=== PATIENT | male | born 1995 ===

== ENCOUNTER 2017-01-14 22:47 | Emergency (ER) | payer OTHER ==
[2017-01-14 23:17] VITALS: BP 139/69; PULSE 66; RESP 15; TEMP 99.5; O2SAT 99
--- NOTE | 2017-01-14 23:44 | ED PDOC ---
HPI: Headache Time Seen by Provider: 01/14/17 23:21 Chief Complaint (Nursing): Headache Chief Complaint (Provider): Headache History Per: Patient History/Exam Limitations: no limitations Onset/Duration Of Symptoms: Hrs (24) Current Symptoms Are (Timing): Still Present Severity: Mild Associated Symptoms: denies: Blurred Vision, Nausea, Vomiting Additional Complaint(s): 21 y/o male patient presenting to the ED with a head injury. PT states that 24 hours ago he tripped and fell hitting the left side of his head and ear. PT states he was under the influence of alcohol and that over the last 24 hours there has been a progressive worsening pain to the left Parietal region of his scalp and ear pain. He denies nausea, no vomiting, he states he has no neck pain and denies losing consciousness. PT denies any past medical history or current medical conditions. Past Medical History Reviewed: Historical Data, Nursing Documentation, Vital Signs Vital Signs: Last Vital Signs Temp 99.5 F 01/14/17 23:12 Pulse 66 01/14/17 23:12 Resp 15 01/14/17 23:12 BP 139/69 01/14/17 23:12 Pulse Ox 99 01/14/17 23:12 - Medical History PMH: No Chronic Diseases - Surgical History Surgical History: No Surg Hx - Family History Family History: States: Unknown Family Hx - Social History Current smoker - smoking cessation education provided: No Alcohol: Social - Allergies Allergies/Adverse Reactions: Allergies Allergy/AdvReac Type Severity Reaction Status Date / Time No Known Allergies Allergy Verified 01/14/17 23:17 Review of Systems ROS Statement: Except As Marked, All Systems Reviewed And Found Negative ENT: Positive for: Ear Pain ((+)Left ) Cardiovascular: Negative for: Chest Pain Respiratory: Negative for: Cough, Shortness of Breath Gastrointestinal: Negative for: Nausea, Vomiting Musculoskeletal: Negative for: Neck Pain Physical Exam - Reviewed Nursing Documentation Reviewed: Yes Vital Signs Reviewed: Yes - Physical Exam Appears: Positive for: Non-toxic, No Acute Distress Head Exam: Negative for: ATRAUMATIC ((+)Abrasion to the Left Parietal Scalp (-) CSpine Tenderness, Neck Pain, Mastoid Tenderness ) Skin: Positive for: Normal Color, Warm, Dry ENT: Positive for: Other ((+)Abrasion to the Left Auricle (+)small amount of Hemotympanum present on Left Ear Canal Exam) Neck: Positive for: Normal, Painless ROM, Supple Cardiovascular/Chest: Positive for: Regular Rate, Rhythm. Negative for: Murmur Neurologic/Psych: Positive for: Alert, Oriented. Negative for: Motor/Sensory Deficits - ECG O2 Sat by Pulse Oximetry: 99 (RA) Pulse Ox Interpretation: Normal Medical Decision Making Medical Decision Making: Time: 2332 Initial impression: Head Injury Under Alcohol Use Initial plan: --Head w/o contrast 00:35: CT Results reviewed and independently interpreted by ED Physician EXAM: CT Head Without Intravenous Contrast CLINICAL HISTORY: 21 years old, male; Injury or trauma; Fall; Initial encounter; Blunt trauma ( contusions or hematomas); Additional info: Head injury. Lt sided pain TECHNIQUE: Axial computed tomography images of the head/brain without intravenous contrast. This CT exam was performed using one or more of the following dose reduction techniques: automated exposure control, adjustment of the mA and/or kV according to patient size, and/or use of iterative reconstruction technique. Coronal and sagittal reformatted images were created and reviewed. COMPARISON: No relevant prior studies available. FINDINGS: Brain: No intracranial hemorrhage. No mass. No edema. Ventricles: No hydrocephalus. Bones/joints: No acute fracture. Soft tissues: Unremarkable. Sinuses: No acute sinusitis. Mastoid air cells: No mastoid effusion. Orbits: Unremarkable as visualized. IMPRESSION: 1. No intracranial hemorrhage. 2. Incidental/non-acute findings are described above. (US & Hector) 00:40: Discharge: Final Dx: Scalp contusion Re-evaluation. Patient feels better. Discussed results and plan with patient who expresses understanding. Counseling was provided regarding the diagnosis and prognosis. All questions answered and there is agreement with the plan to discharge home with instructions. Patient stable for discharge. Return if symptoms persist or worsen. Scribe Attestation: Documented by Tatiana Chew, acting as a scribe for Eddy Sheriff MD MD Scribe Attestation: All medical record entries made by the Scribe were at my direction and personally dictated by me. I have reviewed the chart and agree that the record accurately reflects my personal performance of the history, physical exam, medical decision making, and the department course for this patient. I have also personally directed, reviewed, and agree with the discharge instructions and disposition. Disposition - Clinical Impression Clinical Impression: Scalp contusion - Patient ED Disposition Is Patient to be Admitted: No - Disposition Referrals: [facility] [Outside] Disposition: Routine/Home Disposition Time: 00:40 Condition: STABLE Instructions: Scalp Contusion in Adults (ED) Print Language: RUSSIAN
--- NOTE | 2017-01-15 00:36 | CT ---
EXAM: CT Head Without Intravenous Contrast CLINICAL HISTORY: 21 years old, male; Injury or trauma; Fall; Initial encounter; Blunt trauma (contusions or hematomas); Additional info: Head injury. Lt sided pain TECHNIQUE: Axial computed tomography images of the head/brain without intravenous contrast. This CT exam was performed using one or more of the following dose reduction techniques: automated exposure control, adjustment of the mA and/or kV according to patient size, and/or use of iterative reconstruction technique. Coronal and sagittal reformatted images were created and reviewed. COMPARISON: No relevant prior studies available. FINDINGS: Brain: No intracranial hemorrhage. No mass. No edema. Ventricles: No hydrocephalus. Bones/joints: No acute fracture. Soft tissues: Unremarkable. Sinuses: No acute sinusitis. Mastoid air cells: No mastoid effusion. Orbits: Unremarkable as visualized. IMPRESSION: 1. No intracranial hemorrhage. 2. Incidental/non-acute findings are described above.
== END 2017-01-15 01:04 | disposition home or self-care (01) ==
LOC: H.ER 22:47
DX: S00.03XA Contusion of scalp, initial encounter (principal); W19.XXXA Unspecified fall, initial encounter; Y92.89 Other specified places as the place of occurrence of the external cause